=== PATIENT | male | born 1950 | race African-American/Black ===

== ENCOUNTER → 2016-12-20 | Outpatient (CLI) | payer MEDICARE ==
--- NOTE | 2016-12-20 16:37 | RADIOLOGY REPORT (SQ) ---
EXAM DESCRIPTION: RIBS RIGHT W/PA CHEST COMPLETED DATE/TIME: 12/20/2016 4:26 pm REASON FOR STUDY: OTHER CHEST PAIN R07.89 OTHER CHEST PAIN COMPARISON: None. TECHNIQUE: Frontal view of the chest and additional views of the right ribs acquired. NUMBER OF VIEWS: PA chest, right rib detail films LIMITATIONS: None. FINDINGS: FRONTAL CXR: No pneumothorax. No pleural effusion. No atelectasis or infiltrates. Cardi ac silhouette size, shanae unremarkable. RIBS: No displaced rib fractures. No lytic or blastic bony lesions. OTHER: Mild diffuse degenerative changes thoracic spine. IMPRESSION: NO PNEUMOTHORAX. NO DISPLACED RIB FRACTURES. COMMENT: SITE OF TRAUMA/COMPLAINT MARKED/STAMP COMPLETED: No TECHNICAL DOCUMENTATION: JOB ID: [id number] [employer]- All Rights Reserved
== END ==
LOC: RAD 16:08
PROVIDERS: ATTEND Family Medicine
DX: R07.89 Other chest pain (principal)